=== PATIENT | male | born 1950 | race Caucasian/White ===

== ENCOUNTER 2017-09-17 02:05 | Emergency (ER) | payer BC ==
[2017-09-17] MEDS ORDERED: Ondansetron INJ* 2 MG/ML VIAL IV ONE (02:43)
[2017-09-17] MEDS ORDERED: Ketorolac INJ* 30 MG/ML 1 ML VIAL IV ONE (02:43)
[2017-09-17] MEDS ORDERED: NS 0.9% 1000 ML* 1,000 ML IV ONE (02:43)
[2017-09-17] MEDS ORDERED: Morphine INJ* 10 MG/ML 1 ML CARPUJECT IV ONE (02:43)
[2017-09-17 03:12] LABS: ABS Basophils 0 10^3/ul (0-0.2); ABS Eosinophils 0.1 10^3/ul (0-0.6); ABS Monocytes 0.4 10^3/ul (0-0.8); ABS Neutrophils 5.5 10^3/ul (1.5-7.7); ABS Nucleated RBC 0 10^3/ul; Eosinophil % 1.6 % (0-6); Hematocrit 41 % (42-52); Hemoglobin 14.2 g/dl (14.0-18.0); Lymphocyte % 13.6 % (25-47); Mean Corpuscular HGB Conc 34 g/dl (31-36); Mean Corpuscular Hemoglobin 34 pg (27-31); Mean Corpuscular Volume 99 fL (80-94); Nucleated Red Blood Cells % 0; Platelet Count 197 10^3/ul (150-450); Red Blood Count 4.16 10^6/ul (4.0-5.4); Red Cell Distribution Width 12 % (10.5-15)
[2017-09-17 03:22] LABS: EGFR Non-African American 86.4 (>60)
[2017-09-17 04:25] LABS: Urine Appearance Clear; Urine Blood Negative (Negative); Urine Color Yellow; Urine Ketones Trace (Negative); Urine Protein Negative (Negative); Urine Specific Gravity 1.015 (1.010-1.030); Urine Urobilinogen Negative (Negative)
[2017-09-17 05:11] VITALS: BP 140/80
--- NOTE | 2017-09-17 05:16 | ED ---
Madelyn Arguello Julia, scribed for Nita Kendall MD on 09/17/17 at 0231 . Abdominal Pain/Male - HPI Summary HPI Summary: This patient is a 67 year old M presenting to [facility] with a chief complaint of sudden RLQ abdominal pain that radiates to the R flank since 23:00. Patient reports nausea and loose stool. Patient denies testicular pain, fever, and hematuria. He states his last BM was about a half hour ago. The patient rates the pain 7/10 in severity. Symptoms alleviated by lying down. He states the colonoscopy in April2017 was completely normal. - History of Current Complaint Chief Complaint: EDAbdPain Stated Complaint: ABD PAIN Time Seen by Provider: 09/17/17 02:19 Hx Obtained From: Patient Onset/Duration: Lasting Hours Timing: Constant Pain Intensity: 7 Pain Scale Used: 0-10 Numeric Location: Discrete At: RLQ Radiates: Yes Radiates to: Flank - right Alleviating Factor(s): Other: - lying down Associated Signs And Symptoms: Positive: Diarrhea, Other - nausea. Negative: Fever, Constipation - Allergies/Home Medications Allergies/Adverse Reactions: Allergies Allergy/AdvReac Type Severity Reaction Status Date / Time Sulfa (Sulfonamide Allergy Unknown Verified 09/17/17 02:11 Antibiotics) Reaction Details PMH/Surg Hx/FS Hx/Imm Hx Endocrine/Hematology History: Denies: Hx Diabetes Cardiovascular History: Denies: Hx Hypertension, Hx Pacemaker/ICD History: Denies: Hx Renal Disease Musculoskeletal History: Denies: Hx Rheumatoid Arthritis, Hx Osteoporosis Sensory History: Denies: Hx Hearing Aid Psychiatric History: Denies: Hx Panic Disorder - Surgical History Surgery Procedure, Year, and Place: tonsillectomy. left kolb - repair (muscle sheath rupture) Infectious Disease History: Yes Infectious Disease History: Reports: Hx Shingles Denies: Traveled Outside the [place] in Last 30 Days - Social History Alcohol Use: Daily Substance Use Type: Reports: None Smoking Status (MU): Never Smoked Tobacco Review of Systems Negative: Fever Positive: Abdominal Pain, Diarrhea, Nausea Genitourinary: Negative - testicular pain Positive: flank pain. Negative: hematuria All Other Systems Reviewed And Are Negative: Yes Physical Exam - Summary Physical Exam Summary: VITAL SIGNS: Reviewed. GENERAL: Patient is a well-developed and nourished male who is lying comfortable in the stretcher. Patient is not in any acute respiratory distress. HEAD AND FACE: No signs of trauma. No ecchymosis, hematomas or skull depressions. No sinus tenderness. EYES: PERRLA, EOMI x 2, No injected conjunctiva, no nystagmus. EARS: Hearing grossly intact. Ear canals and tympanic membranes are within normal limits. MOUTH: Oropharynx within normal limits. NECK: Supple, trachea is midline, no adenopathy, no JVD, no carotid bruit, no c- spine tenderness, neck with full ROM. CHEST: Symmetric, no tenderness at palpation LUNGS: Clear to auscultation bilaterally. No wheezing or crackles. CVS: Regular rate and rhythm, S1 and S2 present, no murmurs or gallops appreciated. ABDOMEN: Soft, non-tender. No signs of distention. No rebound no guarding, and no masses palpated. Bowel sounds are hyperactive EXTREMITIES: FROM in all major joints, no edema, no cyanosis or clubbing. NEURO: Alert and oriented x 3. No acute neurological deficits. Speech is normal and follows commands. SKIN: Dry and warm Triage Information Reviewed: Yes Vital Signs On Initial Exam: Initial Vitals Temp Pulse Resp BP Pulse Ox 97.4 F 69 16 159/92 100 09/17/17 02:10 09/17/17 02:10 09/17/17 02:10 09/17/17 02:10 09/17/17 02:10 Vital Signs Reviewed: Yes Diagnostics - Vital Signs Vital Signs Temp Pulse Resp BP Pulse Ox 09/17/17 02:10 97.4 F 69 16 159/92 100 - Laboratory Result Diagrams: 09/17/17 02:50 09/17/17 02:50 Lab Statement: Any lab studies that have been ordered have been reviewed, and results considered in the medical decision making process. - CT A/P CT Interpretation Completed By: Radiologist - Nephrolithiasis. ED Physician has reviewed this report. Re-Evaluation - Re-Evaluation 0445 Re-Evaluation Time: 04:45 Change: Improved - Pt feels better. Pt will be discharged. Abdominal Pain Fem Course/Dx - Course Course Of Treatment: Pt presents with sudden RLQ abdominal pain that radiates to the R flank since 23:00. A CT A/P reveals right nephrolithasis. Pt is given Toradol, Zofran, Morphine, and IV fluids. Lab results are WNL. Pt feels better in ED. - Diagnoses Provider Diagnoses: Nephrolithiasis, Abdominal pain Discharge - Sign-Out/Discharge Documenting (check all that apply): Discharge - Discharge Plan Condition: Stable Disposition: HOME Patient Education Materials: Kidney Stones (ED) Referrals: Parker Kessler MD [Medical Doctor] - As Soon As Possible (Follow up with your larry car operator, or this gastroenterolgist.) Additional Instructions: RETURN TO THE EMERGENCY DEPARTMENT FOR CHANGING OR WORSENING SYMPTOMS. The documentation as recorded by the Madelyn zeng Julia accurately reflects the service I personally performed and the decisions made by me, Nita Kendall MD.
--- NOTE | 2017-09-17 07:50 | RAD ---
CLINICAL HISTORY: Abdominal pain COMPARISON: None TECHNIQUE: Multiple contiguous axial CT scans were obtained of the abdomen and pelvis, without intravenous contrast enhancement. Coronal and sagittal multiplanar reformations are submitted for review. Oral contrast was not administered. FINDINGS: The study is limited by the lack of intravenous contrast. This limits evaluation of the solid organs and vasculature. LUNG BASES: The lung bases are clear. LIVER: The liver is normal in shape, size, contour, and attenuation. BILE DUCTS: There is no intrahepatic or extrahepatic biliary dilatation. GALLBLADDER: The gallbladder is normal, without pericholecystic inflammatory change. PANCREAS: The pancreas is normal, without mass or ductal dilatation. SPLEEN: Normal in size and appearance. UPPER GI TRACT: Evaluation of the gastrointestinal tract is limited by incomplete gastric distention. The upper GI tract is unremarkable. SMALL BOWEL AND MESENTERY: The small bowel is normal in contour, course, and caliber. There is no obstruction or dilatation. COLON: The colon is normal in contour, course, caliber. There is no pericolonic inflammatory change. ADRENALS: Normal bilaterally. KIDNEYS: There are bilateral renal calyceal stones measuring up to 0.6 cm. There is no appreciable hydronephrosis. BLADDER: The bladder is smooth in contour. PELVIC ORGANS: The prostate is diffusely enlarged. The seminal vesicles are symmetric. AORTA: The aorta is normal. IVC: Unremarkable LYMPH NODES: There is no lymphadenopathy by size criteria. ABDOMINAL WALL: There is no evidence for abdominal wall hernia. BONES AND SOFT TISSUES: There is a scoliotic curvature of the spine. Degenerative changes are noted, most advanced at L4-L5 and L5-S1.. OTHER: None IMPRESSION: BILATERALLY NEPHROLITHIASIS WITHOUT HYDRONEPHROSIS
== END 2017-09-17 05:09 | disposition home or self-care (01) ==
LOC: ED 02:05
DX: N20.0 Calculus of kidney (principal); R10.9 Unspecified abdominal pain; R19.7 Diarrhea, unspecified; R11.0 Nausea; R10.84 Generalized abdominal pain
CPT/HCPCS: 36415; 74176; 80053; 81003; 83690; 85025; 86140; 96374; 96375; 99283; J1885; J2270; J2405

== ENCOUNTER 2017-10-25 13:41 | Emergency (ER) | payer BC ==
[2017-10-25 13:55] VITALS: BP 176/87
--- NOTE | 2017-10-25 15:39 | UC ---
Cristobal Arguello Nikita, scribed for Fransisco Roach MD on 10/25/17 at 1353 . Eye Complaint HPI - HPI Summary HPI Summary: This patient is a 67 year old M presenting to [facility] with a chief complaint of erythematous L eye and crust discharge in the L eye since 2 days ago. The patient rates the pain 0/10 in severity. Symptoms aggravated by nothing. Symptoms alleviated by nothing. Patient denies blurred vision or eye pain. - History of Current Complaint Stated Complaint: EYE COMPLAINT Time Seen by Provider: 10/25/17 13:50 Hx Obtained From: Patient Onset/Duration: Sudden Onset, Lasting Days, Still Present Timing: Days Severity Currently: None Pain Intensity: 0 Pain Scale Used: 0-10 Numeric Aggravating Factor(s): Nothing Alleviating Factor(s): Nothing - Allergies/Home Medications Allergies/Adverse Reactions: Allergies Allergy/AdvReac Type Severity Reaction Status Date / Time Sulfa (Sulfonamide Allergy Unknown Verified 10/25/17 13:49 Antibiotics) Reaction Details PMH/Surg Hx/FS Hx/Imm Hx Endocrine History: Other Other Endocrine History: No DM Cardiovascular History: Other Other Cardiovascular History: NO HTN - Surgical History Surgical History: Yes Surgery Procedure, Year, and Place: tonsillectomy. left kolb - repair (muscle sheath rupture) - Family History Known Family History: Positive: Other Family History: Negative for Colon CA - Social History Alcohol Use: Daily Substance Use Type: None Smoking Status (MU): Never Smoked Tobacco - Immunization History Most Recent Tetanus Shot: 1 year ago Review of Systems Constitutional: Other - denies fever Eyes: Drainage - erythematous L eye and crust discharge in the L eye, Other - Patient denies blurred vision or eye pain. All Other Systems Reviewed And Are Negative: Yes Physical Exam - Summary Physical Exam Summary: VITAL SIGNS: Reviewed. GENERAL: ~Patient is a well-developed and nourished MALE who is lying comfortable in the stretcher. ~Patient is not in any acute respiratory distress. HEAD AND FACE: Normocephalic EYES: PERRLA, EOMI x 2. Conjunctival erythema and stye. EARS: Hearing grossly intact. MOUTH: Oropharynx within normal limits. NECK: Supple, trachea is midline, no adenopathy, no JVD, no carotid bruit. CHEST: Symmetric, no tenderness at palpation LUNGS: Clear to auscultation bilaterally. No wheezing or crackles. CVS: Regular rate and rhythm, S1 and S2 present, no murmurs or gallops appreciated. ABDOMEN: Soft, non-tender. Bowel sounds are normal. No abdominal abnormal pulsations. EXTREMITIES: Full ROM in all major joints, no edema, no cyanosis or clubbing. NEURO: Alert and oriented x 3. No acute neurological deficits. Speech is normal and follows commands. SKIN: Dry and warm Triage Information Reviewed: Yes Vital Signs Reviewed: Yes Eye Complaint Course/Dx - Course Course Of Treatment: This patient is a 67 year old M presenting to [facility] with a chief complaint of erythematous L eye and crust discharge in the L eye since 2 days ago. The pt is hemodynamically stable, alert and oriented x3. The patient will be discharged with instructions to follow up with an opthamologist. The patient was found to have increased BP in UC. The patient will follow up with PCP for better control of BP. Patient was instructed to return to the urgent care or go to ER immediately if any of the symptoms return or worsens. Plan of care was discussed with the patient, and patient understands and agrees. All questions were answered to patient satisfaction. There were no further complaints or concerns. - Differential Dx/Diagnosis Provider Diagnoses: Conjunctivitis and stye Discharge - Sign-Out/Discharge Documenting (check all that apply): Discharge/Admit/Transfer - Discharge Plan Condition: Stable Disposition: HOME Prescriptions: Amoxicillin PO (*) [Amoxicillin 875 MG (*)] 875 mg PO BID #20 tab Ofloxacin 0.3% OTIC.EDE* [Floxin 0.3% OTIC.EDE*] 1 drop .SEE ORDER TID #1 btl Patient Education Materials: [place]e (ED), Conjunctivitis (ED) Referrals: Kirti Montero MD [Primary Care Provider] - Franc Le MD [Medical Doctor] - Additional Instructions: Take medications as instructed Increase your fluid intake Return to the UC if symptoms worsen The documentation as recorded by the Cristobal zeng Nikita accurately reflects the service I personally performed and the decisions made by me, Fransisco Roach MD.
== END 2017-10-25 14:23 | disposition home or self-care (01) ==
LOC: UCEAST 13:41
DX: H10.32 Unspecified acute conjunctivitis, left eye (principal); H00.026 Hordeolum internum left eye, unspecified eyelid; Z88.2 Allergy status to sulfonamides
CPT/HCPCS: 99212; G0463

== ENCOUNTER 2019-08-14 11:46 | Emergency (ER) | payer BC ==
[2019-08-14] MEDS ORDERED: NS 0.9% 1000 ML** 1,000 ML IV ONE ×2 (11:54→16:13)
[2019-08-14] MEDS ORDERED: HYDROmorphone INJ1* 1 MG/ML SYRINGE IV SLOW PU ONE ×2 (11:54→14:32)
--- NOTE | 2019-08-14 11:55 | ED ---
Back Pain - HPI Summary HPI Summary: 69 year old M with hx kidney stones arriving via ambulance to [facility] complains of back pain rated 10/10 in severity x2 hours. Patient reports nausea and vomiting. Symptoms aggravated by nothing. Symptoms alleviated by nothing. Medications reviewed. Allergies noted. Home Medications Medication Instructions Recorded Confirmed Type Cholecalciferol (Vitamin D3) 1,000 unit PO DAILY 05/02/17 08/14/19 History [Vitamin D3] - History of Current Complaint Stated Complaint: BACK PAIN Time Seen by Provider: 08/14/19 11:50 Hx Obtained From: Patient Onset/Duration: Lasting Hours - 2, Still Present Onset/Duration: Started Hours Ago - 2, Still Present Timing: Constant Severity Currently: Severe Pain Intensity: 10 Pain Scale Used: 0-10 Numeric Aggravating Symptom(s): Nothing Alleviating Symptom(s): Nothing Associated Signs And Symptoms: Positive: Other - nausea/vomiting - Allergies/Home Medications Allergies/Adverse Reactions: Allergies Allergy/AdvReac Type Severity Reaction Status Date / Time Sulfa (Sulfonamide Allergy Unknown Verified 08/14/19 12:40 Antibiotics) Reaction Details Home Medications: Home Medications Cholecalciferol (Vitamin D3) [Vitamin D3] 1,000 unit PO DAILY 05/02/17 [History Confirmed 08/14/19] HYDROcodone/ACETAMIN 5-325 MG* [[place] 5-325 TAB*] 1 tab PO Q6H PRN #20 tab MDD 4 08/14/19 [Rx] Tamsulosin CAP* [Flomax CAP*] 0.4 mg PO DAILY #7 cap 08/14/19 [Rx] PMH/Surg Hx/FS Hx/Imm Hx Endocrine/Hematology History: Denies: Hx Diabetes, Hx Thyroid Disease Cardiovascular History: Denies: Hx Hypertension, Hx Pacemaker/ICD Respiratory History: Denies: Hx Asthma, Hx Chronic Obstructive Pulmonary Disease (COPD) GI History: Denies: Hx Ulcer History: Reports: Hx Kidney Stones Denies: Hx Renal Disease Musculoskeletal History: Denies: Hx Rheumatoid Arthritis, Hx Osteoporosis Sensory History: Denies: Hx Hearing Aid Psychiatric History: Denies: Hx Panic Disorder - Surgical History Surgery Procedure, Year, and Place: tonsillectomy. left kolb - repair (muscle sheath rupture) Infectious Disease History: Reports: Hx Shingles Denies: Hx Hepatitis, Hx Human Immunodeficiency Virus (HIV) - Family History Family History: Negative for Colon CA - Social History Alcohol Use: Daily Substance Use Type: Reports: None Hx Tobacco Use: No Smoking Status (MU): Never Smoked Tobacco Review of Systems Positive: Vomiting, Nausea Positive: Other - back pain All Other Systems Reviewed And Are Negative: Yes Physical Exam - Summary Physical Exam Summary: Appearance: The patient is well-nourished in obvious distress. Skin: The skin is warm and dry, and skin color reflects adequate perfusion. HEENT: The head is normocephalic and atraumatic. The pupils are equal and reactive. The conjunctivae are clear and without drainage. Nares are patent and without drainage. Mouth reveals moist mucous membranes, and the throat is without erythema and exudate. The external ears are intact. The ear canals are patent and without drainage. The tympanic membranes are intact. Neck: The neck is supple with full range of motion and non-tender. There are no carotid bruits. There is no neck vein distension. Respiratory: Chest is non-tender. Lungs are clear to auscultation and breath sounds are symmetrical and equal. Cardiovascular: Heart is regular rate and rhythm. There is no murmur or rub auscultated. There is no peripheral edema and pulses are symmetrical and equal. Abdomen: The abdomen is soft and non-tender. He doesn't seem to have severe tenderness. There are normal bowel sounds heard in all four quadrants and there is no organomegaly palpated. Musculoskeletal: There is no back tenderness noted. Extremities are non-tender with full range of motion. There is good capillary refill. There is no peripheral edema or calf tenderness elicited. Neurological: Patient is alert and oriented to person, place and time. The patient has symmetrical motor strength in all four extremities. Cranial nerves are grossly intact. Deep tendon reflexes are symmetrical and equal in all four extremities. Psychiatric: The patient has an appropriate affect and does not exhibit any anxiety or depression. Triage Information Reviewed: Yes Vital Signs Reviewed: Yes Procedures - Sedation Patient Received Moderate/Deep Sedation with Procedure: No Diagnostics - Laboratory Result Diagrams: 08/14/19 12:03 08/14/19 12:03 Lab Statement: Any lab studies that have been ordered have been reviewed, and results considered in the medical decision making process. - CT ABDOMEN/PELVIS CT Interpretation Completed By: Radiologist - IMPRESSION: #. Urolithiasis. Previous dominant stone in the LEFT kidney on the prior exam has migrated to the proximal ureter and there is resulting mild hydroureteronephrosis. ED physician has reviewed this imaging report. Re-Evaluation - Re-Evaluation First Eval Re-Evaluation Time: 13:45 Change: Improved - patient agrees to discharge Back Pain Course/Dx - Course Course Of Treatment: Mr. Morrison has known kidney stones and has seen Dr. Goel for them in the past. On previous CT scans he was noted to have a 4 mm left kidney stone and on today's CT scan it was noted to be in the proximal ureter with some moderate [place]. UA was remarkable only for microscopic blood. He got significant relief from ketorolac, Dilaudid and Zofran here as well as some fluid. When we attempted to discharge him his pain returned in full force and he was given more fluid and repeat pain medications. I spoke with Dr. Goel who was willing to keep him here if necessary but he did improve and we will attempt outpatient treatment with oral medications. prescriptions for [place] and Zofran were sent. - Diagnoses Provider Diagnoses: Kidney stone - Provider Notifications Discussed Care Of Patient With: Deion Goel Time Discussed With Above Provider: 15:34 Instructed by Provider To: Other - Dr. Goel, urology, is aware Discharge ED - Sign-Out/Discharge Documenting (check all that apply): Patient Departure - Discharge Plan Condition: Stable Disposition: HOME Prescriptions: HYDROcodone/ACETAMIN 5-325 MG* [[place] 5-325 TAB*] 1 tab PO Q6H PRN #20 tab MDD 4 PRN Reason: Pain Tamsulosin CAP* [Flomax CAP*] 0.4 mg PO DAILY #7 cap Patient Education Materials: Kidney Stones (ED) Referrals: Deion Goel MD [Medical Doctor] - (Follow up with Dr. Goel next week.) Additional Instructions: Take ibuprofen for the pain. Follow up with Dr. Goel next week. Return to the Emergency Department for new or worsening symptoms. - Billing Disposition and Condition Condition: STABLE Disposition: Home - Attestation Statements Document Initiated by Scribe: Yes Documenting Scribe: Maddy Alfred Provider For Whom Scribe is Documenting (Include Credential): Brennen Hernandez MD Scribe Attestation: IMaddy, scribed for Brennen Hernandez MD on 08/14/19 at 2111. Scribe Documentation Reviewed: Yes Provider Attestation: The documentation as recorded by the scribe, Maddy Alfred accurately reflects the service I personally performed and the decisions made by me, Brennen Hernandez MD Status of Scribe Document: Viewed
[2019-08-14] MEDS ORDERED: Ondansetron INJ* 2 MG/ML VIAL IV ONE ×2 (11:59→14:32)
[2019-08-14] MEDS ORDERED: Ketorolac INJ* 30 MG/ML 1 ML VIAL IV PUSH ONE (11:59)
[2019-08-14 12:15] LABS: ABS Eosinophils 0.1 10^3/ul (0-0.6); ABS Lymphocytes 1.5 10^3/ul (1.0-4.8); ABS Monocytes 0.6 10^3/ul (0-0.8); ABS Neutrophils 9.2 10^3/ul (1.5-7.7); Eosinophil % 0.7 %; Hematocrit 45 % (42-52); Hemoglobin 15.6 g/dL (14.0-18.0); Lymphocyte % 12.7 %; Mean Corpuscular HGB Conc 34 g/dL (31-36); Mean Corpuscular Hemoglobin 34 pg (27-31); Mean Corpuscular Volume 99 fL (80-94); Mean Platelet Volume 6.7 fL (7.4-10.4); Platelet Count 236 10^3/uL (150-450); Red Blood Count 4.59 10^6 /uL (4.18-5.48); Red Cell Distribution Width 12 % (10-15); White Blood Count 11.5 10^3/uL (3.5-10.8)
[2019-08-14 12:24] LABS: Urine Appearance Cloudy; Urine Bilirubin Negative (Negative); Urine Blood 3+ (Negative); Urine Color Yellow; Urine Glucose Negative (Negative); Urine Ketones Negative (Negative); Urine Nitrite Negative (Negative); Urine Protein Negative (Negative); Urine Urobilinogen Negative (Negative)
[2019-08-14 12:27] LABS: Urine Bacteria Absent (Absent); Urine Red Blood Cell 3+(>10/hpf) (Absent); Urine White Blood Cell Absent (Absent)
[2019-08-14 12:40] LABS: ALT 19 U/L (7-52); AST 30 U/L (13-39); Albumin 4.3 g/dL (3.2-5.2); Albumin/Globulin Ratio 1.7 (1-3); Alkaline Phosphatase 46 U/L (34-104); Anion Gap 10 mmol/L (2-11); BUN/Creatinine Ratio 12.5 (8-20); Blood Urea Nitrogen 15 mg/dL (6-24); C Reactive Protein < 1.00 mg/L (<8.01); CO2 Carbon Dioxide 25 mmol/L (22-32); Chloride 103 mmol/L (101-111); EGFR African American 72.6 (>60); Globulin 2.5 g/dL (2-4); Glucose 157 mg/dL (70-100); Potassium 3.6 mmol/L (3.5-5.0); Sodium 138 mmol/L (135-145); Total Protein 6.8 g/dL (6.4-8.9)
[2019-08-14] MEDS ORDERED: Ondansetron ODT TAB* 4 MG PO ONE ×2 (14:35→19:10)
[2019-08-14] MEDS ORDERED: oxyCODONE/Acetamin 5/325 MG* TAB PO ONE ×2 (14:35→19:05)
[2019-08-14 19:05] VITALS: BP 158/84
[2019-08-14] MEDS ORDERED: oxyCODONE/Acetamin 5/325 MG* TAB ONE (19:22)
[2019-08-14] MEDS ORDERED: Ondansetron ODT TAB* 4 MG ONE (19:23)
== END 2019-08-14 14:05 | disposition home or self-care (01) ==
LOC: ED 11:46
DX: N13.2 Hydronephrosis with renal and ureteral calculous obstruction (principal); Z87.442 Personal history of urinary calculi; R11.2 Nausea with vomiting, unspecified; Z88.2 Allergy status to sulfonamides
CPT/HCPCS: 36415; 74176; 80053; 81003; 81015; 85025; 86140; 96361; 96374; 96375; 96376; 99283; A9270-GY; J1170; J1885; J2405

== ENCOUNTER 2019-08-16 04:19 | Emergency (ER) | payer BC ==
[2019-08-16] MEDS ORDERED: NS 0.9% 1000 ML** 1,000 ML IV ONE ×2 (04:40→06:00)
[2019-08-16] MEDS ORDERED: Ketorolac INJ* 30 MG/ML 1 ML VIAL IV PUSH ONE (04:42)
[2019-08-16] MEDS ORDERED: Ondansetron INJ* 2 MG/ML VIAL IV ONE ×2 (04:42→06:00)
--- NOTE | 2019-08-16 04:44 | ED ---
Abdominal Pain/Male - HPI Summary HPI Summary: 69 year old M with recent dx kidney stone arriving via private car complains of worsening left flank pain starting at 1700 yesterday 08/15/2019. Patient was seen in the ED on 08/14/2019. He reports that the pain had improved after he was discharged home from the ED until 1700 yesterday when his pain began to worsen. He states the pain has not moved and is in the same spot. Patient reports nausea and vomiting; last episode of vomiting 15 minutes ago. He reports constipation. Patient denies dysuria and abdominal pain. Symptoms rated 8/10 in severity. Symptoms aggravated by nothing. Symptoms alleviated by OTC and rx medications. Medications reviewed. Allergies reviewed. - History of Current Complaint Chief Complaint: EDAbdPain Stated Complaint: FLANK PAIN PER PT Time Seen by Provider: 08/16/19 04:39 Onset/Duration: Lasting Hours - 12, Still Present Timing: Constant Severity Currently: Severe Pain Intensity: 8 Pain Scale Used: 0-10 Numeric Location: Flank - L Aggravating Factor(s): Nothing Alleviating Factor(s): Nothing Associated Signs And Symptoms: Positive: Negative - dysuria, abdominal pain, Nausea, Vomiting - Allergies/Home Medications Allergies/Adverse Reactions: Allergies Allergy/AdvReac Type Severity Reaction Status Date / Time Sulfa (Sulfonamide Allergy Unknown Verified 08/18/19 12:07 Antibiotics) Reaction Details Home Medications: Home Medications Cholecalciferol (Vitamin D3) [Vitamin D3] 1,000 unit PO DAILY 05/02/17 [History Confirmed 08/14/19] HYDROcodone/ACETAMIN 5-325 MG* [[place] 5-325 TAB*] 1 tab PO Q6H PRN #20 tab MDD 4 08/14/19 [Rx] Tamsulosin CAP* [Flomax CAP*] 0.4 mg PO DAILY #7 cap 08/14/19 [Rx] Metoclopramide TAB* [Reglan TAB*] 10 mg PO Q8H PRN #12 tab 08/16/19 [Rx] Ibuprofen 600 mg PO Q6HR PRN 08/18/19 [History Confirmed 08/18/19] PMH/Surg Hx/FS Hx/Imm Hx Endocrine/Hematology History: Denies: Hx Diabetes, Hx Thyroid Disease Cardiovascular History: Denies: Hx Hypertension, Hx Pacemaker/ICD Respiratory History: Denies: Hx Asthma, Hx Chronic Obstructive Pulmonary Disease (COPD) GI History: Denies: Hx Ulcer History: Reports: Hx Kidney Stones Denies: Hx Renal Disease Musculoskeletal History: Denies: Hx Rheumatoid Arthritis, Hx Osteoporosis Sensory History: Denies: Hx Hearing Aid Psychiatric History: Denies: Hx Panic Disorder - Surgical History Surgery Procedure, Year, and Place: tonsillectomy. left kolb - repair (muscle sheath rupture) Infectious Disease History: No Infectious Disease History: Reports: Hx Shingles Denies: Hx Hepatitis, Hx Human Immunodeficiency Virus (HIV), Traveled Outside the [place] in Last 30 Days - Family History Known Family History: Positive: Other Family History: Negative for Colon CA - Social History Alcohol Use: Daily Alcohol Amount: 1 beer Substance Use Type: Reports: None Hx Tobacco Use: No Smoking Status (MU): Never Smoked Tobacco Review of Systems - ROS Summary Review of Systems Summary: Home Medications Medication Instructions Recorded Confirmed Type Cholecalciferol (Vitamin D3) 1,000 unit PO DAILY 05/02/17 08/14/19 History [Vitamin D3] HYDROcodone/ACETAMIN 5-325 MG* 1 tab PO Q6H PRN #20 tab MDD 4 08/14/19 Rx [[place] 5-325 TAB*] Tamsulosin CAP* [Flomax CAP*] 0.4 mg PO DAILY #7 cap 08/14/19 Rx Positive: Vomiting, Nausea, Other - constipaion. Negative: Abdominal Pain Positive: flank pain - left. Negative: dysuria All Other Systems Reviewed And Are Negative: Yes Physical Exam - Summary Physical Exam Summary: General: Well-developed, Well-nourished MALE. No acute distress. He is mildly anxious appearing. HEENT: Normocephalic, Atraumatic. Eyes: Conjuctiva normal, PERRL. Oropharynx: Clear, mucous membranes moist, (-) exudates. Neck: Soft, FROM, (-) lymphadenopathy, (-) thyromegaly, (-) JVD. Cardiovascular: Normal sinus rhythm, (-) murmur. Lungs: Clear to auscultation bilaterally (-) wheezes, (-) rales, (-) rhonchi. Abdomen: Soft, left flank tenderness, non-distended, (-) organomegaly, normal bowel sounds. Back: (-) CVA tenderness Extremities: No edema. Skin: Warm, dry, (-) rash. Neuro: Alert and oriented x3, moves all extremities equally. No ataxia. No gait disturbance. No sensory deficit. Normal strength, normal sensation. Psychiatric: Mood normal, affect normal. Triage Information Reviewed: Yes Vital Signs On Initial Exam: Initial Vitals Temp Pulse Resp BP Pulse Ox 98 F 65 18 178/93 98 08/16/19 04:21 08/16/19 04:21 08/16/19 04:21 08/16/19 04:21 08/16/19 04:21 Vital Signs Reviewed: Yes Procedures - Sedation Patient Received Moderate/Deep Sedation with Procedure: No Diagnostics - Vital Signs Vital Signs Temp Pulse Resp BP Pulse Ox 08/16/19 04:21 98 F 65 18 178/93 98 - Laboratory Result Diagrams: 08/16/19 05:20 08/16/19 05:20 Lab Statement: Any lab studies that have been ordered have been reviewed, and results considered in the medical decision making process. Re-Evaluation - Re-Evaluation First Eval Re-Evaluation Time: 07:25 Comment: sitting in bed on knee, about to vomit, pain is okay, but has nausea Second Eval Re-Evaluation Time: 08:28 Comment: Discussed trying new nausea medication. Third Eval Re-Evaluation Time: 08:54 Comment: Feeling better but wants to stay a little bit longer to make sure he is okay. Abdominal Pain Male Course/Dx - Course Course Of Treatment: 69 year old male with known 4 mm kidney stone. was seen here yesterday. had ct scan and pain control. patient states he was doing well until tonight when pain became severe. started vomiting. patient given IVFs, Zofran, Toradol. some relief and then pain returned. patient gieven fentanyl, signed out at chage of shift awaiting reevaluation. - Diagnoses Provider Diagnoses: Nephrolithiasis Discharge ED - Sign-Out/Discharge Documenting (check all that apply): Sign-Out Patient Signing out patient TO: Willard Brooks - Discharge Plan Condition: Stable Disposition: HOME Prescriptions: Metoclopramide TAB* [Reglan TAB*] 10 mg PO Q8H PRN #12 tab PRN Reason: Vomiting Patient Education Materials: Kidney Stones (ED) Referrals: Kirti Montero MD [Primary Care Provider] - 3 Days Additional Instructions: Call Dr. Goel on Sunday, come back to ED if fever, uncontrolled pain, continue norco and flomax. 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 - Billing Disposition and Condition Condition: STABLE Disposition: Home - Attestation Statements Document Initiated by Manolo: Yes Documenting Scribe: Maddy Alfred Provider For Whom Radhae is Documenting (Include Credential): Celeste Rg MD Scribe Attestation: I, Maddy Alfred, scribed for Celeste Rg MD on 08/19/19 at 2016. Scribe Documentation Reviewed: Yes Provider Attestation: The documentation as recorded by the Maddy zeng accurately reflects the service I personally performed and the decisions made by me, Celeste Rg MD Status of Scribe Document: Viewed
[2019-08-16 05:40] LABS: ABS Monocytes 0.9 10^3/ul (0-0.8); ABS Neutrophils 9.5 10^3/ul (1.5-7.7); Eosinophil % 0.2 %; Hematocrit 42 % (42-52); Hemoglobin 14.8 g/dL (14.0-18.0); Lymphocyte % 8.6 %; Mean Corpuscular HGB Conc 36 g/dL (31-36); Mean Corpuscular Hemoglobin 35 pg (27-31); Mean Corpuscular Volume 97 fL (80-94); Platelet Count 206 10^3/uL (150-450); Red Blood Count 4.27 10^6 /uL (4.18-5.48); Red Cell Distribution Width 12 % (10-15); White Blood Count 11.5 10^3/uL (3.5-10.8)
[2019-08-16 05:41] LABS: Urine Appearance Clear; Urine Bilirubin Negative (Negative); Urine Blood 1+ (Negative); Urine Color Yellow; Urine Glucose Negative (Negative); Urine Ketones Trace (Negative); Urine Nitrite Negative (Negative); Urine Protein Negative (Negative); Urine Specific Gravity 1.017 (1.010-1.030); Urine Urobilinogen Negative (Negative)
[2019-08-16 05:47] LABS: Urine Bacteria Absent (Absent); Urine Red Blood Cell 2+(6-10/hpf) (Absent); Urine White Blood Cell Trace(0-5/hpf) (Absent)
[2019-08-16 06:00] LABS: Albumin 4.4 g/dL (3.2-5.2); Albumin/Globulin Ratio 2.1 (1-3); BUN/Creatinine Ratio 11.8 (8-20); EGFR African American 55.3 (>60); EGFR Non-African American 45.7 (>60); Globulin 2.1 g/dL (2-4); Potassium 4.1 mmol/L (3.5-5.0); Total Bilirubin 1.1 mg/dL (0.2-1.0); Total Protein 6.5 g/dL (6.4-8.9)
[2019-08-16] MEDS ORDERED: fentaNYL* 50 MCG/ML 2 ML VIAL (100 MCG VIAL) IV SLOW PU PRN (06:56)
[2019-08-16] MEDS ORDERED: Metoclopramide IV* 5 MG/ML 2 ML VIAL IV ONE (07:26)
[2019-08-16 08:11] LABS: INR 1.09 (0.82-1.09)
--- NOTE | 2019-08-16 08:29 | ED ---
Progress - Progress Note Progress Note: This patient was signed out from Dr. Rg to Dr. Brooks at shift change at 0700, pending disposition, awaiting pain control. The patients condition is stable and will be discharged home. Re-Evaluation - Re-Evaluation First Eval Re-Evaluation Time: 07:25 Comment: sitting in bed on knee, about to vomit, pain is okay, but has nausea Second Eval Re-Evaluation Time: 08:28 Comment: Discussed trying new nausea medication. Third Eval Re-Evaluation Time: 08:54 Comment: Feeling better but wants to stay a little bit longer to make sure he is okay. Course/Dx - Course Course Of Treatment: Patient signed out to myself from Dr. Rg. Patient has a known kidney stone and is being treated with [place] and Motrin at home. Upon my history, patient denies any fever. Patient is nauseous but overall well- appearing. Patient received fentanyl and Reglan with improvement in his symptoms. Patient was comfortable with discharge. Patient called Dr. Goel on Sunday for an appointment. - Diagnoses Provider Diagnoses: Nephrolithiasis Discharge ED - Sign-Out/Discharge Documenting (check all that apply): Patient Departure - Discharge - Discharge Plan Condition: Stable Disposition: HOME Prescriptions: Metoclopramide TAB* [Reglan TAB*] 10 mg PO Q8H PRN #12 tab PRN Reason: Vomiting Patient Education Materials: Kidney Stones (ED) Referrals: Kirti Montero MD [Primary Care Provider] - 3 Days Additional Instructions: Call Dr. Goel on Sunday, come back to ED if fever, uncontrolled pain, continue norco and flomax. 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 - Billing Disposition and Condition Condition: STABLE Disposition: Home - Attestation Statements Document Initiated by Scribe: Yes Documenting Scribe: Anny Garcia Provider For Whom Brantibrambo is Documenting (Include Credential): Willard Brooks MD Scribe Attestation: Anny Arguello, scribed for Willard Brooks MD on 08/16/19 at 1540. Scribe Documentation Reviewed: Yes Provider Attestation: The documentation as recorded by the brantibAnny ricks accurately reflects the service I personally performed and the decisions made by me, Willard Brooks MD Status of Scribe Document: Viewed
[2019-08-16] MEDS ORDERED: Morphine 4 MG/ML VIAL (1 ml) 4 MG/ML VIAL IV ONE (09:40)
[2019-08-16 10:09] VITALS: BP 174/95
== END 2019-08-16 10:08 | disposition home or self-care (01) ==
LOC: ED 04:19
DX: N20.0 Calculus of kidney (principal); Z88.2 Allergy status to sulfonamides; K59.00 Constipation, unspecified; Z79.83 Long term (current) use of bisphosphonates; Z79.899 Other long term (current) drug therapy
CPT/HCPCS: 36415; 80053; 81003; 81015; 83605; 83690; 85025; 85610; 87086; 96374; 96375; 96376; 99283; J1885; J2270; J2405; J2765; J3010

== ENCOUNTER → 2019-08-18 11:18 | Day surgery (SDC) | payer BC ==
[~2019-08-18 11:18] MED LIST: Buffered Lidocaine 1% SYRIN* 1 ML/SYRINGE INTRADERM ONE; Dexamethasone IV* 4 MG/ML 1 ML (4 MG) ONE; Famotidine IV* 10 MG/ML 2 ML (20 mg) IV ONE; Famotidine IV* 10 MG/ML 2 ML (20 mg) ONE; Glycopyrrolate IV* 0.2 MG/ML 1 ML VIAL ONE; Ketorolac INJ* 30 MG/ML 1 ML VIAL ONE; Lactated Ringers 1000 ML Bag* 1,000 ML IV SCH; Lidocaine 2% PF * 5 ML VIAL ONE; Morphine 4 MG/ML VIAL (1 ml) 4 MG/ML VIAL ONE; Ondansetron INJ* 2 MG/ML VIAL ONE; Propofol* 10 MG/ML 20 ML BTL ONE; cefTRIAXone(*) 2 GM ADDV.VIAL IVPB ONE; fentaNYL* 50 MCG/ML 2 ML VIAL (100 MCG VIAL) ONE
--- NOTE | 2019-08-18 12:09 | HP ---
DATE OF ADMISSION/SURGERY: 08/18/2019. HISTORY OF PRESENT ILLNESS: Mr. Morrison is a 69-year-old, white male who is admitted with recurrent episodes of left renal colic caused by a left ureteral calculus for cystoscopy, left ureteroscopy, laser lithotripsy and left ureteral stent insertion. Mr. Morrison was noted to have bilateral asymptomatic non obstructing renal calculi in the past. He presented to the emergency room on 08/14/2019 with symptoms of left renal colic. He did not have any fever or chills. Noncontrast CT of the abdomen and pelvis showed a 5 mm calculus in the proximal left ureter associated with mild left hydronephrosis. There were also bilateral non- obstructing renal calculi, measuring 4 mm or less each. The patient was managed conservatively with pain medications and was discharged home on Hydrocodone and on Tamsulosin. He initially did well; however, he presented back to the emergency room yesterday with recurrence of the renal colic. This was associated with nausea and vomiting. He did not have any fever or chills. No imaging was performed and the patient was given IV fluid, pain medication, controlling his pain and he was discharged home. The patient has been having on & off episodes of left flank pain. He was evaluated in my office today and had a renal ultrasound which showed mild to moderate left hydronephrosis. The patient has not noted passage of a calculus since his visit to the emergency room yesterday. He had another episode of acute Lt flank when admitted today. He has also noted some swelling and pain of his Right testis. No Rt flank pain, and no voiding symptoms. Because of the above history and recurrent episodes of flank pain, the patient is admitted for the above procedure. Past history is relevant for occsional episodes of Rt testicular pain, typically occurring when he sits for a long time, and improves with ambulation.. PAST MEDICAL HISTORY/SYSTEM REVIEW: He is in excellent health. He denies any cardiac or pulmonary diseases or symptoms. He has excellent exercise tolerance. Mental health history is negative. MEDICATIONS: His only medication is Hydrocodone and Tamsulosin prescribed for his recent renal colic. He takes vitamin supplements. ALLERGIES: He reports being ALLERGIC TO SULFA DRUGS. FAMILY HISTORY: Negative for renal diseases or calculi. SOCIAL HISTORY: Alcohol intake of about one beer a day. He denies use of recreational drugs. PHYSICAL EXAMINATION Vital Signs: Temp 98.6, H.R. 80, BP 180/100 (in pain) GENERAL: Pleasant white male who is in moderate to severe Lt flank pain. LUNGS: Clear. HEART: Regular and rhythmic, no murmurs. ABDOMEN: Soft. There is moderate left CVA and left lower quadrant tenderness. No guarding. The rest of the abdominal exam is normal. Genitalia: Circumcised, no penile lesions. Normal Lt testis. Soft Rt hydrocele, moderately tender Rt testis and epididymis, normal position of the testis, no testicular masses. IMPRESSION: Recurrent episodes of left renal colic secondary to a 5-6 mm left ureteral calculus requiring so far two visits to the emergency room for pain control. Rt hydrocele, Rt scrotal pain, probably secondary to non bacterial epididymitis. PLAN: Cystoscopy, left ureteroscopy, laser lithotripsy and left ureteral stent insertion. If the calculus cannot be reached due to edema of the ureter, then the plan will be to place a left ureteral stent in preparation for definitive treatment of the stone. I discussed the above plans with the patient. Some of the potential complications including infection and ureteral stricture. All his questions were answered. [id number]/CPS #: [id number] TIGRE
[2019-08-18 16:55] VITALS: BP 147/80
--- NOTE | 2019-08-19 02:47 | OP ---
DATE OF OPERATION: 08/18/19 [facility] DATE OF : 50 SURGEON: Deion Goel MD ANESTHESIOLOGISTS: 1. Dr. Mooney. 2. Dr. Rangel. ANESTHESIA: General. PRE-OP DIAGNOSES: 1. Left renal colic. 2. Left ureteral calculus. POST-OP DIAGNOSES: 1. Left renal colic. 2. Left ureteral calculus. OPERATIVE PROCEDURE: 1. Cystoscopy. 2. Left ureteroscopy. 3. Laser lithotripsy of left ureteral calculus. 4. Left retrograde pyelography and insertion of left ureteral stent (6 [place] Ze[place]ander). INDICATIONS: Mr. Morrison is a 69-year-old white male who presented 4 days ago to the emergency room with symptoms of left renal colic and was noted on CT to have a 5-mm proximal left ureteral calculus. He was managed conservatively with tamsulosin and pain medication. He initially improved but the pain recurred and he went back to the emergency room last night with recurrence of his colic. Because of the persistent and recurrent episodes of pain, the patient is taken to the operating room for the above procedure. PATHOLOGY: At cystoscopy, the penile and bulbar urethrae looked normal. The prostatic urethra measured 2.5 cm in length and there was moderate obstruction by prostate enlargement. Examination of the bladder showed normal mucosa. There were no suspicious bladder lesions seen. No calculi or diverticula were noted. Upon fluoroscopy and upon left ureteroscopy, there was a 6- to 7-mm calculus located at the junction between the middle and distal thirds of the ureter. The calculus had the gross appearance of a calcium oxalate stone. Moderate left hydronephrosis was noted. DESCRIPTION OF PROCEDURE: After successful general anesthesia, the patient was placed in the lithotomy position and was prepped and draped for cystoscopy. Cystoscopy was performed. The bladder was inspected and the above findings were noted. A flexible-tip Hybrid guidewire was then introduced into the left orifice and was successfully introduced past the calculus and positioned in the area of the renal pelvis. The cystoscope was then removed keeping the guidewire in place. A 6.5- semirigid ureteroscope was then introduced inside the bladder. A flexible- tipped basket was introduced through the port of the ureteroscope and its flexible tip was then introduced inside the left ureteral orifice adjacent to the guidewire. That allowed the atraumatic introduction of the ureteroscope inside the ureter. The ureteroscope was introduced successfully in an atraumatic way until the distal third of the ureter where the calculus was identified. The basket was then deployed and the calculus was engaged to stabilize it. A 550 micron laser fiber was then introduced through the other port of the ureteroscope and the stone was then broken with the laser energy. Care was taken not to injure the adjacent ureteral wall. The stone was broken into multiple fragments. The fragments were then extracted and sent for stone analysis. Ureteroscopy at the completion of the procedure showed no evidence of any ureteral wall injury. The cystoscope was reintroduced over the guidewire. Retrograde pyelography was then performed. A size 6-[place] stent was then placed with the proximal end coiling in the renal pelvis and distal end coiling inside the bladder. There was good drainage of contrast from the kidney. The patient tolerated the procedure well and left the operating room in good condition. The plan is to keep the stent in place for 7 to 10 days. It will be removed in the office under local anesthesia. [id number]/CPS #: [id number] TIGRE
== END | disposition home or self-care (01) ==
LOC: OR 11:18
PROVIDERS: ATTEND Urology
DX: N13.2 Hydronephrosis with renal and ureteral calculous obstruction (principal); N40.0 Benign prostatic hyperplasia without lower urinary tract symptoms
CPT/HCPCS: 82365; 88300; C1876; J0696; J1100; J1885; J2270; J2405; J2704; J3010